=== PATIENT | male | born 1960 | race Caucasian/White ===

== ENCOUNTER → 2018-11-03 11:49 | Outpatient (CLI) | payer OTHER, SELFPAY ==
--- NOTE | 2018-11-03 | DI.RAD.S_ITS ---
PROCEDURE: XR KNEE RT 3V INDICATIONS: PAIN IN RIGHT KNEE TECHNIQUE: 3 views of the knee were acquired. COMPARISON: [facility], , KNEE 3V RIGHT, 06/21/2015, 9:50. FINDINGS: Bones: No fractures or dislocations. No suspicious bony lesions. There are small calcifications again seen at the anterior border of the joint space, potentially an unusual manifestation of chondrocalcinosis and also potentially small intra-articular loose bodies. Soft tissues: No joint effusion. No suspicious soft tissue calcifications. IMPRESSION: Mild degenerative change at the medial compartment of the knee and the lateral facet of the patellofemoral joint. Possible intra-articular loose bodies at anterior joint space were previously present in 2015. Chondrocalcinosis or calcific tendinitis also might produce this appearance in this area. Dictated by: Rock Latham M.D. on 11/03/2018 at 13:09 Approved by: Rock Latham M.D. on 11/03/2018 at 13:11
== END ==
PROVIDERS: PCP Student in an Organized Health Care Education/Training Program; Visit Provider Student in an Organized Health Care Education/Training Program
DX: M25.561 Pain in right knee (principal); M17.11 Unilateral primary osteoarthritis, right knee
CPT/HCPCS: 73562

== ENCOUNTER → 2019-06-24 12:08 | Outpatient (CLI) | payer OTHER, SELFPAY ==
--- NOTE | 2019-06-24 | DI.RAD.S_ITS ---
PROCEDURE: XR KNEE LT 4V INDICATIONS: LEFT KNEE PAIN TECHNIQUE: 4 views of the knee were acquired. COMPARISON: [facility], CR, XR KNEE RT 3V, 11/03/2018, 11:54. FINDINGS: Bones: Mild medial femoral tibial compartment joint space narrowing is seen. No fractures or dislocations. No suspicious bony lesions. Soft tissues: No joint effusion. No suspicious soft tissue calcifications. IMPRESSION: Mild medial femoral tibial compartment osteoarthritis. No fracture or dislocation. No joint effusion. Dictated by: Chris Schmidt M.D. on 06/24/2019 at 13:35 Approved by: Chris Schmidt M.D. on 06/24/2019 at 13:48
== END ==
PROVIDERS: PCP Student in an Organized Health Care Education/Training Program; Visit Provider Orthopaedic Surgery
DX: M25.562 Pain in left knee (principal); M17.12 Unilateral primary osteoarthritis, left knee
CPT/HCPCS: 73564

== ENCOUNTER → 2019-07-21 08:00 | Outpatient (CLI) | payer OTHER, SELFPAY | PROVIDERS: Family Provider Student in an Organized Health Care Education/Training Program; PCP Student in an Organized Health Care Education/Training Program; Visit Provider Nurse Practitioner | DX: Z53.9 Procedure and treatment not carried out, unspecified reason (principal) ==

== ENCOUNTER → 2019-08-03 13:41 | Outpatient (CLI) | payer OTHER, SELFPAY ==
--- NOTE | 2019-08-03 | DI.MRI.S_ITS ---
PROCEDURE: MR KNEE LT WO/W CON INDICATIONS: METASTATIC MELANOMA TECHNIQUE: Noncontrast sagittal PD fast spin echo and T2 fast spin echo with fat saturation, sagittal 3-D FLASH with fat saturation; coronal T1 spin echo and PD fast spin echo with fat saturation, and axial T1 spin echo and PD fast spin echo with fat saturation through the knee. Post-contrast axial, coronal, and sagittal T1 spin echo with fat saturation through the knee. COMPARISON: [facility], RG, NM PET SCAN, 09/05/2015, 11:41. Outside Facility, RG, MRI FEMUR WO/W CONTRAST, 11/30/2015, 8:25. [facility], MR, MR KNEE RIGHT WITHOUT CONTRAST, 04/01/2019, 20:37. [facility], MR, KNEE WITHOUT CONTRAST, 06/27/2015, 20:05. [facility], CR, XR KNEE RT 3V, 11/03/2018, 11:54. Outside Facility, RG, MRI LOWER EXT. JOINT W/WO CONTRAST, 11/30/2015, 8:25. [facility], CR, XR KNEE STANDING BILATERAL, 11/17/2018, 9:30. [facility], CR, XR KNEE LT 4V, 06/24/2019, 12:26. FINDINGS: Image quality: Excellent. Menisci: There is large degenerative tear of the body and posterior horn of the medial meniscus. The lateral meniscus demonstrates normal morphology and internal signal. The meniscal root ligaments appear intact. Cruciate ligaments: The anterior and posterior cruciate ligaments appear intact. Medial structures: The medial collateral ligament appears intact. The semimembranosus tendon insertionsand meniscocapsular junction appear intact. Visualized portions of the pes anserinus tendons appear normal. No abnormal bursal fluid. Lateral structures: The lateral collateral ligament and the biceps femoris tendon appear intact. The popliteus tendon appears normal. Iliotibial band appears normal. Anterior structures: The quadriceps and patellar tendons appear intact. Patellar alignment is normal. No femoral trochlear dysplasia or ventral trochlear prominence. No edema in the infrapatellar fat pad. Bones and cartilage: No suspicious osseous enhancement. No bone marrow contusions or fractures. There is cartilage thinning and fibrillation, most pronounced in the medial femorotibial compartment. Joint space: There is moderate knee joint effusion. There is a moderate to large sized Robert's cyst which demonstrates heterogeneous signal likely secondary to hemorrhage. There is thickening of synovial plicae. No suspicious soft tissue enhancement. IMPRESSION: 1. No osseous metastatic disease identified. Previously seen enhancing subcutaneous nodules are not visualized. 2. Large degenerative tear of the body and posterior horn of the medial meniscus. 3. 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 4. There is thickening and increased enhancement with moderate knee joint effusion, consistent with synovitis. 5. Moderate to large Robert's cyst which demonstrates heterogeneous signal likely secondary to hemorrhage or debris. Recommend ultrasound for further evaluation if clinically indicated. Dictated by: June Murray M.D. on 08/03/2019 at 16:18 Transcribed by: AILYN on 08/03/2019 at 17:38 Approved by: June Murray M.D. on 08/04/2019 at 18:38
--- NOTE | 2019-08-03 | DI.MRI.S_ITS ---
PROCEDURE: MR KNEE RT WO/W CON INDICATIONS: METASTATIC MELANOMA TECHNIQUE: Noncontrast sagittal PD fast spin echo and T2 fast spin echo with fat saturation, sagittal 3-D FLASH with fat saturation; coronal T1 spin echo and PD fast spin echo with fat saturation, and axial T1 spin echo and PD fast spin echo with fat saturation through the knee. Post-contrast axial, coronal, and sagittal T1 spin echo with fat saturation through the knee. COMPARISON: Outside Facility, RG, CT LOWER EXTREMITY W/O CONTRAST, 09/05/2015, 12:44. [facility], CR, XR KNEE RT 3V, 11/03/2018, 11:54. Outside Facility, RG, NM PET SCAN, 12/12/2015, 14:20. [facility], CR, XR KNEE STANDING BILATERAL, 11/17/2018, 9:30. [facility], MR, MR KNEE RIGHT WITHOUT CONTRAST, 04/01/2019, 20:37. FINDINGS: Image quality: Excellent. Menisci: There is severe truncation of both medial and lateral menisci, likely sequela of old meniscal tear and/or meniscectomies. The meniscal root ligaments appear intact. Cruciate ligaments: The anterior cruciate ligament appears mildly thickened, unchanged from the last exam, consistent with chronic tear/scarring. The posterior cruciate ligament is intact. Medial structures: The medial collateral ligament appears intact. The posterior oblique ligament, semimembranosus tendon insertions, and oblique popliteal liagment, and meniscocapsular junction appear intact. Visualized portions of the pes anserinus tendons appear normal. No abnormal bursal fluid. Lateral structures: The lateral collateral ligament, long and short heads of the biceps femoris tendon appear intact. The popliteus tendon appears normal; the popliteofibular ligament appears intact. The posterosuperior and anteroinferior popliteomeniscal fascicles appear intact. The arcuate and fabellofibular ligaments appear intact, around the lateral inferior geniculate artery. Iliotibial band appears normal. Anterior structures: The quadriceps and patellar tendons appear intact. Patellar alignment is normal. No femoral trochlear dysplasia or ventral trochlear prominence. No edema in the infrapatellar fat pad. Bones and cartilage: No suspicious osseous enhancement. No fractures. There is an osteochondral lesion in the posterior aspect of the lateral tibial plateau with mild surrounding pulmonary edema, as seen on the last exam. There is tricompartmental cartilage loss and fibrillation. Joint space: There is moderate knee joint fluid. There is synovial thickening and increased enhancement, consistent with synovitis. No Robert's cyst. No suspicious soft tissue enhancement. IMPRESSION: 1. No osseous metastatic disease. 2. Severe truncation of both medial and lateral menisci, presumably sequelae of old meniscal injury and/or meniscectomy. 3. Tricompartmental cartilage loss. 4. Synovial thickening and moderate knee joint effusion consistent with synovitis. 5. An osteochondral lesion in the lateral tibial plateau, unchanged. 6. Mild thickening of ACL consistent with chronic tear/scarring. Dictated by: June Murray M.D. on 08/03/2019 at 16:53 Transcribed by: AILYN on 08/03/2019 at 17:38 Approved by: June Murray M.D. on 08/04/2019 at 18:40
== END ==
PROVIDERS: Family Provider Student in an Organized Health Care Education/Training Program; PCP Student in an Organized Health Care Education/Training Program; Visit Provider Nurse Practitioner
DX: C79.9 Secondary malignant neoplasm of unspecified site (principal); M79.9 Soft tissue disorder, unspecified; M23.222 Derangement of posterior horn of medial meniscus due to old tear or injury, left knee; M23.232 Derangement of other medial meniscus due to old tear or injury, left knee; M25.462 Effusion, left knee; M71.22 Synovial cyst of popliteal space [Baker], left knee; M25.461 Effusion, right knee; M93.961 Osteochondropathy, unspecified, right lower leg; M25.562 Pain in left knee; M25.561 Pain in right knee
CPT/HCPCS: 73723; A9579

== ENCOUNTER → 2019-10-08 15:59 | Outpatient (CLI) | payer OTHER, SELFPAY ==
--- NOTE | 2019-10-08 16:01 | DI.RAD.S_ITS ---
PROCEDURE: XR FEMUR LT MIN 2V INDICATIONS: left hip pain TECHNIQUE: 4 views of the femur were acquired. COMPARISON: None. FINDINGS: Bones: No fractures or dislocations. No suspicious bony lesions. Mild left hip joint degeneration. Subtle linear sclerosis projects in the mid femoral diaphysis, although unclear clinical etiology or significance. This could represent prior postsurgical sequela. Soft tissues: No suspicious soft tissue calcifications or masses. Numerous inguinal surgical clips IMPRESSION: No fracture Mild left hip joint degeneration Dictated by: Vadim Schultz M.D. on 10/08/2019 at 17:30 Approved by: Vadim Schultz M.D. on 10/08/2019 at 17:33
== END ==
PROVIDERS: PCP Student in an Organized Health Care Education/Training Program; Visit Provider Physician Assistant
DX: M25.552 Pain in left hip (principal); M16.12 Unilateral primary osteoarthritis, left hip
CPT/HCPCS: 73552

== ENCOUNTER → 2019-11-05 07:50 | Outpatient (CLI) | payer OTHER, SELFPAY ==
[2019-11-05 08:30] LABS: Add Manual Diff / Slide Review NO; Basophils Absolute Auto 100 /uL (0-100); Basophils Percent Auto 0.8 % (0-2); Eosinophils Absolute Auto 100 /uL (0-450); Eosinophils Percent Auto 1.1 % (2-4); Hematocrit 34.3 % (41-53); Lymphocytes Absolute Auto 1000 /uL (1100-4500); Mean Corpuscular HGB Conc 31.9 % (30-36); Mean Corpuscular Hemoglobin 23.5 PG (26-34); Mean Corpuscular Volume 73.6 fL (80-100); Monocytes Absolute Auto 700 /uL (0-900); Monocytes Percent Auto 10.4 % (3-14); Neutrophils Absolute Auto 5100 /uL (1500-7000); Neutrophils Percent Auto 72.7 % (50-75); Platelet Count 356 X10^3/uL (150-400); Red Blood Cell Count 4.66 X10^6/uL (4.5-5.9)
[2019-11-05 08:46] LABS: Alanine Aminotransferase 13 IU/L (<50); Albumin 4.1 g/dL (3.5-5.0); Alkaline Phosphatase 96 U/L (38-126); Aspartate Aminotransferase 22 IU/L (17-59); BUN Creatinine Ratio 22.2 (6-22); Bilirubin Total 0.5 mg/dL (0.2-1.3); Blood Urea Nitrogen 20 mg/dL (9-20); Calcium 9.5 mg/dL (8.4-10.2); Carbon Dioxide 31 mmol/L (22-32); Chloride 98 mmol/L (98-107); Cholesterol 131 mg/dL (140-199); Estimated Glomerular Filt Rate > 60.0 mL/min (>60); Glucose 114 mg/dL (80-110); HDL Cholesterol 26 mg/dL (40-60); HEMOLYSIS < 15 (0-50); LDL Cholesterol Calculated 93 mg/dL (<100); Potassium 4.2 mmol/L (3.4-5.1); Sodium 139 mmol/L (137-145); Total Protein 8.1 g/dL (6.3-8.2); Triglycerides 62 mg/dL (35-150)
[2019-11-05 09:28] LABS: Procalcitonin < 0.05 ng/mL (<0.5)
== END ==
PROVIDERS: PCP Student in an Organized Health Care Education/Training Program; Visit Provider Student in an Organized Health Care Education/Training Program
DX: E78.5 Hyperlipidemia, unspecified (principal); D50.9 Iron deficiency anemia, unspecified
CPT/HCPCS: 36415; 80053; 80061; 84145; 85025

== ENCOUNTER → 2020-12-05 08:12 | Outpatient (CLI) | payer BC, SELFPAY ==
[2020-12-05 09:44] LABS: Cholesterol 210 mg/dL (140-199); HDL Cholesterol 56 mg/dL (40-60); LDL Cholesterol Calculated 140 mg/dL (<100); Triglycerides 70 mg/dL (35-150)
== END ==
PROVIDERS: PCP Student in an Organized Health Care Education/Training Program; Referring Provider Internal Medicine Cardiovascular Disease; Visit Provider Internal Medicine Cardiovascular Disease
DX: Z13.220 Encounter for screening for lipoid disorders (principal)
CPT/HCPCS: 36415; 80061

== ENCOUNTER → 2024-01-07 17:08 | Outpatient (CLI) | payer BC, SELFPAY ==
[2024-01-07 18:25] LABS: Influenza A - CEPHEID Flu A POSITIVE (NEGATIVE); Influenza B - CEPHEID Flu B NEGATIVE (NEGATIVE); Respiratory Syncytial Virus Negative (Negative)
[2024-01-07 18:28] LABS: COVID-19 CEPHEID 4-PLEX PCR Negative (Negative)
== END ==
PROVIDERS: PCP Student in an Organized Health Care Education/Training Program; Visit Provider Nurse Practitioner Family
DX: J02.9 Acute pharyngitis, unspecified (principal); R05.9 Cough, unspecified
CPT/HCPCS: 0241U; 87070